=== PATIENT | female | born 1960 | race Caucasian/White ===

== ENCOUNTER 2016-06-06 16:42 | Emergency (ER) | payer MEDICARE ==
[2016-06-06 17:23] VITALS: BP 110/65
--- NOTE | 2016-06-06 18:01 | UC ---
Throat Pain/Nasal Jimmy HPI - HPI Summary HPI Summary: FOUR WEEKS OF SINUS PRESSURE PAIN, ONE WEEK OF ST EAR PAIN ON RIGHT SIDE - History of Current Complaint Chief Complaint: UCRespiratory Stated Complaint: SINUSES Time Seen by Provider: 06/06/16 17:21 Hx Obtained From: Patient Hx Last Menstrual Period: occas spot Onset/Duration: Gradual Onset, Lasting Weeks, Still Present Severity: Moderate Cough: Nonproductive Associated Signs & Symptoms: Positive: Hoarseness, Sinus Discomfort, Nasal Discharge - Epiglottits Risk Factors Epiglottis Risk Factors: Negative - Allergies/Home Medications Allergies/Adverse Reactions: Allergies Allergy/AdvReac Type Severity Reaction Status Date / Time No Known Allergies Allergy Verified 06/06/16 17:14 Home Medications: Home Medications guaiFENesin LIQ* [Robitussin*] 10 ml PO Q4H PRN 06/06/16 [History Confirmed ] PMH/Surg Hx/FS Hx/Imm Hx Previously Healthy: Yes Endocrine History Of: Denies: Diabetes, Thyroid Disease Cardiovascular History Of: Denies: Cardiac Disorders, Hypertension Respiratory History Of: Denies: COPD, Asthma GI/ History Of: Denies: Ulcer - Surgical History Surgical History: Yes Surgery Procedure, Year, and Place: l4-l5 fusion - Family History Known Family History: Negative: Respiratory Disease - Social History Occupation: Unemployed Lives: With Family Alcohol Use: None Substance Use Type: None Smoking Status (MU): Light Every Day Tobacco Smoker Type: Cigarettes Amount Used/How Often: 3 CIGS PER DAY Length of Time of Smoking/Using Tobacco: "quitting" - Immunization History Most Recent Influenza Vaccination: NO Review of Systems Constitutional: Negative Skin: Negative Eyes: Negative ENT: Ear Ache, Nasal Discharge Respiratory: Cough Cardiovascular: Negative Gastrointestinal: Negative Genitourinary: Negative Motor: Negative Neurovascular: Negative Musculoskeletal: Negative Neurological: Negative Psychological: Negative All Other Systems Reviewed And Are Negative: Yes Physical Exam Triage Information Reviewed: Yes Appearance: No Pain Distress, Well-Nourished, Ill-Appearing - MILD Vital Signs: Initial Vital Signs Temp 97.6 F 06/06/16 17:16 Pulse 62 06/06/16 17:16 Resp 18 06/06/16 17:16 BP 110/65 06/06/16 17:16 Pulse Ox 100 06/06/16 17:16 Vital Signs Reviewed: Yes Eye Exam: Normal ENT Exam: Normal ENT: Positive: Pharynx normal, Nasal congestion, Nasal drainage, TM dull Dental Exam: Normal Neck exam: Normal Respiratory Exam: Normal Respiratory: Positive: Chest non-tender, Lungs clear, Normal breath sounds, No respiratory distress, No accessory muscle use Cardiovascular Exam: Normal Cardiovascular: Positive: RRR, No Murmur, Pulses Normal Abdominal Exam: Normal Musculoskeletal Exam: Normal Neurological Exam: Normal Psychological Exam: Normal Psychological: Positive: Normal Response To Family Skin Exam: Normal Throat Pain/Nasal Course/Dx - Differential Dx/Diagnosis Differential Diagnosis/HQI/PQRI: Otitis Media, Pharyngitis, Sinusitis, Tonsillitis, URI Provider Diagnoses: SINUSITIS Discharge - Discharge Plan Condition: Stable Disposition: HOME Prescriptions: Amoxicillin/Clavulanate TAB* [Augmentin TAB 875*] 875 mg PO BID #20 tab Patient Education Materials: Sinusitis (ED) Referrals: Beni Holcomb MD [Primary Care Provider] -
== END 2016-06-06 18:14 | disposition home or self-care (01) ==
LOC: UCCORT 16:42
DX: J32.9 Chronic sinusitis, unspecified (principal); F17.210 Nicotine dependence, cigarettes, uncomplicated
CPT/HCPCS: 99212; G0463

== ENCOUNTER 2017-05-26 12:28 | Emergency (ER) | payer MEDICARE ==
[2017-05-26 13:54] VITALS: BP 121/74
--- NOTE | 2017-05-26 14:02 | UC ---
Throat Pain/Nasal Jimmy HPI - HPI Summary HPI Summary: SINUS PAIN AND PRESSURE X 4 WEEKS + NASAL CONGESTION , FEVER, CHILLS NO COUGH - History of Current Complaint Chief Complaint: UCRespiratory Stated Complaint: SINUSES Time Seen by Provider: 05/26/17 13:33 Hx Obtained From: Patient Hx Last Menstrual Period: occas spot Onset/Duration: Gradual Onset, Lasting Weeks - 4, Still Present Severity: Moderate Pain Intensity: 7 Cough: None Associated Signs & Symptoms: Positive: Sinus Discomfort, Nasal Discharge, Fever. Negative: Dysphagia, FB Sensation, Drooling, Wheezing, Hoarseness, Vomiting, Rash - Allergies/Home Medications Allergies/Adverse Reactions: Allergies Allergy/AdvReac Type Severity Reaction Status Date / Time No Known Allergies Allergy Verified 05/26/17 13:43 Home Medications: Home Medications Varenicline Tartrate [Chantix Starting M... 0.5 mg X 11 & 1 mg X 42] 1 artie PO BID 05/26/17 [History Confirmed 05/26/17] PMH/Surg Hx/FS Hx/Imm Hx Psychological History: Anxiety, Depression - Surgical History Surgical History: Yes Surgery Procedure, Year, and Place: l4-l5 fusion - Family History Known Family History: Negative: Respiratory Disease - Social History Alcohol Use: None Substance Use Type: None Smoking Status (MU): Light Every Day Tobacco Smoker Type: Cigars Amount Used/How Often: ONE PER DAY Length of Time of Smoking/Using Tobacco: "quitting" - Immunization History Most Recent Influenza Vaccination: NO Review of Systems Constitutional: Fever, Chills, Fatigue Skin: Negative Eyes: Negative ENT: Nasal Discharge, Sinus Congestion, Sinus Pain/Tenderness Respiratory: Cough Is Patient Immunocompromised?: No All Other Systems Reviewed And Are Negative: Yes Physical Exam Triage Information Reviewed: Yes Appearance: Well-Appearing, No Pain Distress, Well-Nourished Vital Signs: Initial Vital Signs Temp 99.5 F 05/26/17 13:46 Pulse 69 05/26/17 13:46 Resp 16 05/26/17 13:46 BP 121/74 05/26/17 13:46 Pulse Ox 100 05/26/17 13:46 Eyes: Positive: Conjunctiva Clear ENT: Positive: Normal ENT inspection, Hearing grossly normal, Pharynx normal, Nasal congestion, TMs normal, Sinus tenderness. Negative: Nasal drainage, TM bulging, TM dull, TM red, Tonsillar swelling, Tonsillar exudate, Trismus Neck: Positive: Supple, Nontender, No Lymphadenopathy Respiratory: Positive: Chest non-tender, Lungs clear, Normal breath sounds, No respiratory distress, No accessory muscle use Cardiovascular Exam: Normal Cardiovascular: Positive: RRR, No Murmur, Pulses Normal Abdominal Exam: Normal Skin Exam: Normal Throat Pain/Nasal Course/Dx - Differential Dx/Diagnosis Provider Diagnoses: SINUSITIS Discharge - Discharge Plan Condition: Stable Disposition: HOME Prescriptions: Amoxicillin/Clavulanate TAB* [Augmentin TAB 875*] 875 mg PO BID #20 tab Fluticasone NASAL SPRAY 50MCG* [Flonase NASAL SPRAY 50MCG*] 2 spray BOTH NARES DAILY #1 btl Patient Education Materials: Sinusitis (ED) Referrals: Beni Holcomb MD [Primary Care Provider] - If Needed
== END 2017-05-26 14:07 | disposition home or self-care (01) ==
LOC: UCCORT 12:28
DX: J32.9 Chronic sinusitis, unspecified (principal); F17.210 Nicotine dependence, cigarettes, uncomplicated
CPT/HCPCS: 99212; G0463

== ENCOUNTER 2018-05-29 11:44 | Emergency (ER) | payer MEDICARE ==
--- OUTSIDE RECORDS SUMMARY | 2018-05-29 12:10 | XMS REPORT | Continuity of Care Document ---
:1960 External Reference #:[id number] Author Name Marcela Bernal Care Team Providers Name Role Phone Beni Holcomb M.D. Care Team Information Topographical Surveyor Unavailable Beni Holcomb M.D. Primary Care Physician Unavailable Payers Date Identification Numbers Payment Provider Subscriber Policy Number: [id number] Medicare Maria Esther Randhawa PayID: [id number] [address] [place] [address] Policy [address]: [id number] [facility] Maria Esther Randhawa PayID: [id number] [address] [place] [address] Advance Directives Description No Information Available Problems Description No Information Family History Date Family Member(s) Observation Comments Father due to Unknown Causes () Mother Depression Mother Lymphedema Social History Type Date Description Comments Sex Unknown Allergies, Adverse Reactions, Alerts Description No Known Drug Allergies Medications Medication Date Status Form Strength Qnty SIG Indications Ordering Provider Trazodone HCL / Active Tablets 150mg 1 every Unknown 0000 at bedtime Lexapro / Active Tablets 20mg 1 by Unknown 0000 mouth every day Clonazepam / Active Tablets 2mg 1 tab by Unknown 0000 mouth three times a day as needed Nasonex / Active Suspension 50mcg/Act 2 sprays Unknown 0000 each nostril daily Amoxicillin 03/11/ Hx Tablets 875mg 20tabs 1 by Jude Crisostomo - mouth Rosales, 05/03/ twice a M.D. 2019 day for 10 days Percocet 01/26/ Hx Tablets 5-325mg 20tabs 1-2 by Jude Crisostomo - mouth Rosales, 05/03/ four M.D. 2019 times a day as needed for pain Immunizations Description No Information Available Vital Signs Date Vital Result Comment 05/04/2018 11:18am Weight 137.00 lb Height 63 inches 5'3" BMI (Body Mass Index) 24.3 kg/m2 BP Systolic 121 mmHg BP Diastolic 76 mmHg Heart Rate 64 /min O2 % BldC Oximetry 98 % Body Temperature 98.5 F Pain Level 0 02/02/2018 10:34am Weight 132.00 lb Height 63 inches 5'3" BMI (Body Mass Index) 23.4 kg/m2 BP Systolic 129 mmHg BP Diastolic 76 mmHg Heart Rate 66 /min O2 % BldC Oximetry 95 % Body Temperature 98.2 F Pain Level 1 12/03/2017 1:14pm Weight 133.00 lb Height 63 inches 5'3" BMI (Body Mass Index) 23.6 kg/m2 BP Systolic 128 mmHg BP Diastolic 78 mmHg Heart Rate 54 /min O2 % BldC Oximetry 100 % Body Temperature 98.2 F Pain Level 9 11/26/2017 11:32am Weight 130.12 lb Height 63 inches 5'3" BMI (Body Mass Index) 23.0 kg/m2 BP Systolic 121 mmHg BP Diastolic 80 mmHg Heart Rate 64 /min O2 % BldC Oximetry 95 % Body Temperature 98.0 F Pain Level 0 Results Description No Information Available Procedures Date Code Description Status 01/26/2018 83373 Stereotactic Computer-Assisted, Cranial, Extradural Completed 01/26/2018 34282 Nasal/Sinus Endosc.W.Explor. Completed 01/26/2018 65962 Nasal/Sinus Endo Inc Sphenoido Completed 01/26/2018 68419 Nasal/Sinus Endosc.W.Max.Antrost. Completed 01/26/2018 66514 Submucous Resect.Turb.Par Or Comp Completed 01/26/2018 03078 Anesthesia, Nose & Accessory Sinus Surgery Not Otherwise Completed Spec 11/26/2017 26574 Nasal Endoscopy, Diag. Completed Encounters Type Date Location Provider Dx Diagnosis Office Visit 12/03/2017 Main Office Leon Jacobs34.3 Hypertrophy of nasal 1:15p [employer] turbinates Office Visit 11/26/2017 Main Office Leon Jacobs32.9 Chronic sinusitis, 11:15a [employer] unspecified J34.2 Deviated nasal septum J34.3 Hypertrophy of nasal turbinates J34.89 Other specified disorders of nose and nasal sinuses Plan of Treatment No Information Available
[2018-05-29 12:19] VITALS: BP 140/74
--- NOTE | 2018-05-29 12:27 | UC ---
Throat Pain/Nasal Jimmy HPI - HPI Summary HPI Summary: Patient is a smoker and is having increased sinus pressure, pain and productive cough. She is wheezing, denies fever, - History of Current Complaint Chief Complaint: UCRespiratory Stated Complaint: CHEST CONGESTION, HEADACHE, LEFT EAR Time Seen by Provider: 05/29/18 12:17 Hx Obtained From: Patient Hx Last Menstrual Period: occas spot ?: No Onset/Duration: Sudden Onset, Lasting Weeks - 1 Severity: Moderate Pain Intensity: 6 Cough: Productive Associated Signs & Symptoms: Positive: Dysphagia, Wheezing, Hoarseness, Sinus Discomfort, Nasal Discharge Related History: Smoking - Allergies/Home Medications Allergies/Adverse Reactions: Allergies Allergy/AdvReac Type Severity Reaction Status Date / Time No Known Allergies Allergy Verified 05/29/18 12:11 Home Medications: Home Medications Pseudoephedrine TAB* [Sudafed TAB*] 30 mg PO Q6H PRN 05/29/18 [History Confirmed 05/29/18] PMH/Surg Hx/FS Hx/Imm Hx Previously Healthy: Yes - Surgical History Surgical History: Yes Surgery Procedure, Year, and Place: l4-l5 fusion. SINUS SURGERY- JAN 2018 - Family History Known Family History: Negative: Respiratory Disease - Social History Alcohol Use: None Substance Use Type: Prescribed Smoking Status (MU): Light Every Day Tobacco Smoker Type: Cigars Amount Used/How Often: 1/2 CIGAR PER DAY Length of Time of Smoking/Using Tobacco: "quitting" - Immunization History Most Recent Influenza Vaccination: NO Review of Systems All Other Systems Reviewed And Are Negative: Yes Constitutional: Positive: Fatigue Skin: Positive: Negative Eyes: Positive: Negative ENT: Positive: Sore Throat, Ear Ache, Nasal Discharge, Sinus Congestion Respiratory: Positive: Cough Cardiovascular: Positive: Negative Gastrointestinal: Positive: Negative Genitourinary: Positive: Negative Motor: Positive: Negative Neurovascular: Positive: Negative Musculoskeletal: Positive: Negative Neurological: Positive: Headache Psychological: Positive: Negative Is Patient Immunocompromised?: No Physical Exam Triage Information Reviewed: Yes Appearance: Well-Nourished, Ill-Appearing, Pain Distress Vital Signs: Initial Vital Signs Temp 99.4 F 05/29/18 12:13 Pulse 102 05/29/18 12:13 Resp 18 05/29/18 12:13 BP 140/74 05/29/18 12:13 Pulse Ox 100 05/29/18 12:13 Vital Signs Reviewed: Yes Eye Exam: Normal ENT: Positive: Pharyngeal erythema - wiht pnd, TM bulging, Sinus tenderness Dental Exam: Normal Neck exam: Normal Respiratory Exam: Normal Respiratory: Positive: Chest non-tender, No respiratory distress, No accessory muscle use, Wheezing, Inspiration Cardiovascular Exam: Normal Cardiovascular: Positive: RRR, No Murmur, Pulses Normal Abdominal Exam: Normal Abdomen Description: Positive: Nontender, No Organomegaly, Soft Musculoskeletal Exam: Normal Neurological Exam: Normal Psychological Exam: Normal Skin Exam: Normal Throat Pain/Nasal Course/Dx - Course Course Of Treatment: hx obtained, exam performed, meds reviewed, treated for sinusitis and wheezing - Differential Dx/Diagnosis Differential Diagnosis/HQI/PQRI: Influenza, Laryngitis, Otitis Media, Pharyngitis, Sinusitis, URI Provider Diagnosis: Sinusitis, Wheezing, Tobacco abuse Discharge - Sign-Out/Discharge Documenting (check all that apply): Patient Departure All imaging exams completed and their final reports reviewed: No Studies - Discharge Plan Condition: Stable Disposition: HOME Patient Education Materials: Sinusitis (ED) Referrals: Beni Holcomb MD [Primary Care Provider] - Additional Instructions: 1. take the medication as prescribed. 2. Nasal saline washes multiple times a day 3. FOllow up as needed. - Billing Disposition and Condition Condition: STABLE Disposition: Home
== END 2018-05-29 12:34 | disposition home or self-care (01) ==
LOC: UCCORT 11:44
DX: J32.9 Chronic sinusitis, unspecified (principal); R06.2 Wheezing; F17.210 Nicotine dependence, cigarettes, uncomplicated
CPT/HCPCS: 99212; G0463

== ENCOUNTER 2019-03-18 13:09 | Emergency (ER) | payer MEDICARE ==
[2019-03-18 14:30] VITALS: BP 121/68
--- NOTE | 2019-03-18 14:59 | UC ---
Throat Pain/Nasal Jimmy HPI - HPI Summary HPI Summary: 58-year-old woman comes in with a chief complaint of sinusitis symptoms for 2 weeks. Patient's had prior sinus surgery Dr. Kranthi Vera. She has a scheduled appointment in April 2019. She's had 2 weeks of sinusitis symptoms. Got sinus pressure and green rhinorrhea. She has been using saline nasal spray without much relief. No fevers. Laying down doesn't make the pressure worse. - History of Current Complaint Chief Complaint: UCRespiratory Stated Complaint: SINUS Time Seen by Provider: 03/18/19 14:42 Hx Last Menstrual Period: occas spot Pain Intensity: 8 - Allergies/Home Medications Allergies/Adverse Reactions: Allergies Allergy/AdvReac Type Severity Reaction Status Date / Time clavulanic acid Allergy GI Upset Verified 03/18/19 14:26 PMH/Surg Hx/FS Hx/Imm Hx Previously Healthy: Yes - Surgical History Surgical History: Yes Surgery Procedure, Year, and Place: l4-l5 fusion. SINUS SURGERY- JAN 2018 - Family History Known Family History: Negative: Respiratory Disease - Social History Alcohol Use: None Substance Use Type: Prescribed Smoking Status (MU): Light Every Day Tobacco Smoker Type: Cigars Amount Used/How Often: 2 CIGAR PER DAY Length of Time of Smoking/Using Tobacco: "quitting" - Immunization History Most Recent Influenza Vaccination: NO Review of Systems All Other Systems Reviewed And Are Negative: Yes Constitutional: Positive: Negative Skin: Positive: Negative Eyes: Positive: Negative ENT: Positive: Sore Throat, Nasal Discharge, Sinus Congestion, Sinus Pain/ Tenderness Respiratory: Positive: Negative Cardiovascular: Positive: Negative Gastrointestinal: Positive: Negative Motor: Positive: Negative Neurovascular: Positive: Negative Musculoskeletal: Positive: Negative Neurological: Positive: Negative Psychological: Positive: Negative Is Patient Immunocompromised?: No Physical Exam Triage Information Reviewed: Yes Appearance: Well-Appearing, No Pain Distress, Well-Nourished Vital Signs: Initial Vital Signs Temp 98.1 F 03/18/19 14:27 Pulse 71 03/18/19 14:27 Resp 14 03/18/19 14:27 BP 121/68 03/18/19 14:27 Pulse Ox 98 03/18/19 14:27 Vital Signs Reviewed: Yes Eye Exam: Normal Eyes: Positive: Conjunctiva Clear ENT: Positive: Pharyngeal erythema, Nasal congestion, Nasal drainage, TMs normal Neck: Positive: Supple Respiratory: Positive: Lungs clear, Normal breath sounds, No respiratory distress Cardiovascular: Positive: RRR Musculoskeletal: Positive: Strength Intact, ROM Intact Neurological: Positive: Alert, Muscle Tone Normal Psychological: Positive: Age Appropriate Behavior Skin Exam: Normal Throat Pain/Nasal Course/Dx - Course Course Of Treatment: Patient is a patient of Dr. Crisostomo here in [place]. Patient reports that Biaxin helps with her sinusitis is. Follow-up sooner if not improving or any questions or concerns. - Differential Dx/Diagnosis Provider Diagnosis: Sinusitis Discharge ED - Sign-Out/Discharge Documenting (check all that apply): Patient Departure All imaging exams completed and their final reports reviewed: No Studies - Discharge Plan Condition: Stable Disposition: HOME Prescriptions: Clarithromycin TAB* [Biaxin 500 MG TAB*] 500 mg PO BID #20 tab Patient Education Materials: Sinusitis (ED) Referrals: Beni Holcomb MD [Primary Care Provider] - Rosales Crisostomo MD [Medical Doctor] - Additional Instructions: FOLLOW UP WITH YOUR DOCTOR IF NOT COMPLETELY IMPROVED. GET REEVALUATED SOONER IF NOT IMPROVING OR WORSE OR ANY QUESTIONS OR CONCERNS. - Billing Disposition and Condition Condition: STABLE Disposition: Home
== END 2019-03-18 15:03 | disposition home or self-care (01) ==
LOC: UCCORT 13:09
DX: J32.9 Chronic sinusitis, unspecified (principal); J34.89 Other specified disorders of nose and nasal sinuses; F17.290 Nicotine dependence, other tobacco product, uncomplicated; Z98.1 Arthrodesis status; Z88.0 Allergy status to penicillin
CPT/HCPCS: 99212; G0463

== ENCOUNTER 2019-03-30 14:19 | Emergency (ER) | payer MEDICARE ==
[2019-03-30 14:57] VITALS: BP 147/68
[2019-03-30] MEDS ORDERED: Levalbuterol 0.63MG/3ML NEB* UNIT OF USE INH ONE (15:29)
--- NOTE | 2019-03-30 15:39 | UC ---
General HPI - HPI Summary HPI Summary: Patient is a 58-year-old female who presents to urgent care for recheck. Patient states she was here possibly 10 days ago. Patient states at this time she thought she had a sinus infection with sinus congestion ears were plugged. Patient states she was put on antibiotic that did not agree with her trazodone. Patient states she was unchanged who Omnicef twice a day. Patient states she has 2 doses left. Patient state she still has some sinus pressure but now has congestion in her chest. Patient states at night she wakes up wheezing. Patient denies any shortness of breath. No fevers or chills. Patient does report low energy. Patient does report some mild body aches. Patient has taken 1 or 2 doses of Aleve but nothing else or pain or fever. Patient denies any rash. Patient states she's been very busy trying to get her mother established with care she recently moved her here from out of town. Patient's medications is entered in the EMR by triage nurse reviewed. - History of Current Complaint Chief Complaint: UCGeneralIllness Stated Complaint: CHEST CONGESTION,COUGH Time Seen by Provider: 03/30/19 15:06 Hx Obtained From: Patient, Medical Records Hx Last Menstrual Period: occas spot Onset Severity: Moderate Current Severity: Moderate Pain Intensity: 6 - Allergy/Home Medications Allergies/Adverse Reactions: Allergies Allergy/AdvReac Type Severity Reaction Status Date / Time clavulanic acid Allergy GI Upset Verified 03/30/19 14:57 Home Medications: Home Medications Cefdinir [Cefdinir 300 MG CAP] 300 mg PO BID 03/30/19 [History Confirmed ] Escitalopram * [Lexapro *] 20 mg PO DAILY 03/30/19 [History Confirmed 03/30/19] PMH/Surg Hx/FS Hx/Imm Hx Previously Healthy: Yes - Surgical History Surgical History: Yes Surgery Procedure, Year, and Place: l4-l5 fusion. SINUS SURGERY- JAN 2018 - Family History Known Family History: Negative: Respiratory Disease - Social History Alcohol Use: None Substance Use Type: Prescribed Smoking Status (MU): Light Every Day Tobacco Smoker Type: Cigars Amount Used/How Often: 2 CIGAR PER DAY Length of Time of Smoking/Using Tobacco: "quitting" - Immunization History Most Recent Influenza Vaccination: NO Review of Systems All Other Systems Reviewed And Are Negative: Yes Constitutional: Positive: Fatigue Respiratory: Positive: Cough Physical Exam - Summary Physical Exam Summary: Vital Signs Reviewed: Yes A+Ox3, no distress Eyes: Conjunctiva Clear, BRYCE. EOM intact and full ENT: Hearing grossly normal TM x 2 clear, mild nasal congestion, mild PND, mmoist, uvula midline, no exudate, no erythema Neck: Positive: Supple Respiratory: Positive: No respiratory distress, No accessory muscle use + BS throughout. few scattered exp wheeze,no rhonci Cardiovascular: RRR nl s1, s2 no m/r CBT <2 sec abd soft + BS nt/nd no guarding, no distension Musculoskeletal Exam: GUILLEN x 4 without difficulty Strength Intact, ROM Intact Neurological: Positive: Alert, + sensation throughout Psychological: Positive: Normal Response To examiner Skin: Positive: no rash, no ecchymosis Vital Signs: Initial Vital Signs Temp 99.2 F 03/30/19 14:53 Pulse 65 03/30/19 14:53 Resp 16 03/30/19 14:53 BP 147/68 03/30/19 14:53 Pulse Ox 97 03/30/19 14:53 Diagnostics - Radiology No standard instances Radiology Interpretation Completed By: Radiologist - Patient Name: ANGELINA ROSE Medical Record#: [id number] Ordering Physician: Lisa Omer MD Acct.#: [id number] : Age: 58 Sex: F Location: [facility] Exam Date: 03/30/19 152 ADM Status: REG ER Order Information: CHEST PA & LAT 2 VWS Accession Number: [id number] CPT: 10942 Indication: Cough, wheezing. 2 views of the chest including dual energy PA views demonstrate no mediastinal shift. Heart is of normal size and configuration. Lung mendoza are clear. IMPRESSION: No active cardiopulmonary disease is noted. _ <Electronically signed by Lexi Michelle MD in OV> 03/30/19 1546 Dictated By: Lexi Michelle MD Dictated Date/Time: 03/30/19 1546 Transcribed Date/Time: 1546 Copy to: CC:Lisa Omer MD; No Primary Care Phys,NOPCP Imaging - [facility] Imaging - [facility] Imaging - [facility] [address] [address] [place] [address] [place] [address] ph ([phone]) ph ([phone] ) ph ([phone]) This report is only to be considered final once signed by the Provider(s) as displayed in the "<Electronically Signed by >" field (s). Absence of a signature indicates the report is in a draft status and still needs to be finalized. In the event this document was created by someone other than the signing Provider, the individual initiating the document will be listed in the "Entered by:" or "Dictated by:" mendoza. Re-Evaluation - Re-Evaluation First Eval Change: Improved - Pt improved following neb - no wheeze reviewed CXR, influenza recommend humidify air secretion precaution complete abx diflucan prn OTC med pt requested diflucan for abx related infection return precautions Course/Dx - Course Course Of Treatment: Patient's presents urgent care for reevaluation after she was seen here 10 days ago. Patient states she was ultimately put on Omnicef for sinus infection. Patient states her nasal congestion is improved but not resolved. Patient states no similar chest pain patient is admitted times she wakes up in surgery we see infiltrate or breath. Patient said she coughs it feels dry. Patient has not taken any [id number] cough medication but has been taking Mucinex D and intermittently taken Motrin and Tylenol for an intermittent headache. Patient does report some body aches. Patient states she's been run down and she 's been helping her mother established with a doctor and she recently herself establish with a primary. On exam vital signs are stable. Patient does have some mild nasal congestion postnasal drip. Patient has some few respiratory wheezes but no increased work of breathing. We'll do a chest x-ray took rapid flu and given Xopenex. Patient states that it certainly shaking the past. We' ll reassess afterwards. Patient comfortable in agreement with plan. elevated BP - related to illness - recommend pcp f/u - Diagnoses Provider Diagnosis: Cough Discharge ED - Sign-Out/Discharge Documenting (check all that apply): Patient Departure All imaging exams completed and their final reports reviewed: Yes - Discharge Plan Condition: Stable Disposition: HOME Prescriptions: Fluconazole [Diflucan 150 MG (NF)] 150 mg PO ONCE PRN #1 tab PRN Reason: vaginal yeast infection Levalbuterol HFA INHALER* [Xopenex Hfa Inhaler*] 1 puff INH Q6H PRN #1 mdi PRN Reason: cough, wheeze predniSONE 50 mg TAB [Deltasone 50 mg TAB] 50 mg PO DAILY #5 tab Patient Education Materials: Upper Respiratory Infection (ED), Acute Cough (ED) Referrals: [facility] [place] [facility] [Outside] No Primary Care Phys,NOPCP [Primary Care Provider] - Additional Instructions: -Stay well hydrated - avoid excess caffeine and all alcohol - eat regular, healthy meals - humidify the air in the room where you sleep - boil water, run a hot steam shower, vaporizer, cups of water by heat register - okay to take over the counter decongestant and cough medication --These infections are spread by secretions - do NOT share eating or drinking utensils - clean items you share with other people such as cell phones, computer mouse, TV remote, computer tablets,etc.. Complete the antibiotics as previously prescribed. Change your toothbrush and your pillowcase. - Take prednisone as prescribed until gone -use the inhaler - 2 puffs every 6 hours as needed for cough and wheeze -Call your doctor, return here or go to the emergency department with any questions or concerns - you have been given a prescription for diflucan - okay to use if you develop a vaginal yeast infection related to the antibiotics - Billing Disposition and Condition Condition: STABLE Disposition: Home
[2019-03-30 15:53] LABS: Influenza A Molecular NEGATIVE (Negative); Influenza B Molecular NEGATIVE (Negative)
== END 2019-03-30 16:33 | disposition home or self-care (01) ==
LOC: UCCORT 14:19
DX: R05 Cough (principal); R09.81 Nasal congestion; R51 Headache; R09.82 Postnasal drip; R06.2 Wheezing; F17.290 Nicotine dependence, other tobacco product, uncomplicated; Z88.0 Allergy status to penicillin
CPT/HCPCS: 71046; 99212; G0463